=== PATIENT | male | born 1960 | race Caucasian/White ===

== ENCOUNTER 2018-07-28 08:35 | Day surgery (SDC) | payer MEDICAID ==
[~2018-07-28] VITALS: Ht 175.3 cm; Wt 103.4 kg
[2018-07-28 09:14] LABS: Basophils # (auto) 0 uL; Basophils % (auto) 1.2 % (0.0-2.0); Eosinophils # (auto) 0.2 uL; Eosinophils % (auto) 3.9 % (0.0-7.0); Hematocrit 39.5 % (41.0-53.0); Lymphocytes # (auto) 1.4 uL; Lymphocytes % (auto) 33.2 % (10.0-50.0); Mean Corpuscular Hemoglobin 31.2 pg (28.0-32.0); Mean Corpuscular Hgb Conc. 32.9 g/dL (32.0-36.0); Mean Corpuscular Volume 94.9 fL (80.0-100.0); Monocytes # (auto) 0.3 uL; Monocytes % (auto) 6.8 % (0.0-12.0); Neutrophils # (auto) 2.3 uL; Neutrophils % (auto) 54.9 % (37.0-80.0); Platelet Count (auto) 114 10^3/uL (140-450); Red Blood Cells 4.16 10^6/uL (4.5-5.90); Red Cell Distribution Width 12.3 % (11.8-14.3); White Blood Cell 4.2 10^3/uL (4.4-10.8)
[2018-07-28 09:30] LABS: BUN/Creatinine Ratio 17.7; Calcium 8.9 mg/dL (8.5-10.1); Potassium 3.8 mmol/L (3.5-5.1)
[2018-07-28] MEDS ORDERED: ceFAZolin 1GM/50ML 50 ML IV ONE (09:42)
[2018-07-28 09:44] LABS: INR 0.99 (0.9-1.15); Partial Thromboplastin Time 28.4 sec (23.64-32.05)
[2018-07-28] MEDS ORDERED: NEOMYCIN-BACITRACIN-POLYM 15GM TOP OINT TOP ONE (10:05)
[2018-07-28] MEDS ORDERED: ROPIVACAINE 0.5% (5MG/ML) 20ML AMPULE IJ ONE (10:05)
[2018-07-28] MEDS ORDERED: METOCLOPRAMIDE HCL 5MG/ml INJ 2ml VIAL IV ONE (10:15)
[2018-07-28] MEDS ORDERED: KETOROLAC TROMETH 30 MG/ML 1ML VIAL IV ONE (10:15)
[2018-07-28] MEDS ORDERED: HYDROmorphone HCL 2 MG/ML VL IV PRN (10:15)
[2018-07-28] MEDS ORDERED: fentaNYL CITRATE 100 MCG/2 ML VL ONE (10:18)
[2018-07-28] MEDS ORDERED: ONDANSETRON HCL 4 MG/2 ML VIAL ONE (10:18)
[2018-07-28] MEDS ORDERED: MIDAZOLAM HCL 1MG/1ML-2 ML VIAL ONE (10:18)
[2018-07-28] MEDS ORDERED: SODIUM CHLORIDE LOCK 10 ML ONE (10:18)
[2018-07-28] MEDS ORDERED: PROPOFOL 10 MG/ML 20 ML IV ONE (10:19)
[2018-07-28] MEDS ORDERED: METOCLOPRAMIDE HCL 5MG/ml INJ 2ml VIAL IV PRN (10:30)
[2018-07-28] MEDS ORDERED: LIDOCAINE 2% (LOCAL ANESTH.) PF 5ml SDV ONE (10:43)
[2018-07-28 11:46] VITALS: BP 139/67
== END 2018-07-28 11:51 | disposition home or self-care (01) ==
LOC: SUR 08:35
PROVIDERS: ATTEND Podiatrist Foot & Ankle Surgery
DX: M20.12 Hallux valgus (acquired), left foot (principal); M21.612 Bunion of left foot; J44.9 Chronic obstructive pulmonary disease, unspecified; I11.0 Hypertensive heart disease with heart failure; I50.9 Heart failure, unspecified; E11.9 Type 2 diabetes mellitus without complications; E78.00 Pure hypercholesterolemia, unspecified; E66.9 Obesity, unspecified; D64.9 Anemia, unspecified; F32.9 Major depressive disorder, single episode, unspecified; F17.210 Nicotine dependence, cigarettes, uncomplicated; Z98.890 Other specified postprocedural states; Z86.73 Personal history of transient ischemic attack (TIA), and cerebral infarction without residual deficits; Z68.33 Body mass index [BMI] 33.0-33.9, adult
CPT/HCPCS: 28296; 36415; 71045; 73620; 80048; 85025; 85610; 85730; C1769; J0690; J2001; J2250; J2405; J2704; J2795; J3010; L3260